=== PATIENT | male | born 1960 | race Caucasian/White ===

== ENCOUNTER 2017-06-09 12:34 | Emergency (ER) | payer OTHER ==
[~2017-06-09] VITALS: Ht 167.6 cm; Wt 68.0 kg
[2017-06-09 12:53] VITALS: BP 128/67; PULSE 84; RESP 16; TEMP 98.1; O2SAT 96
[2017-06-09 14:09] LABS: AUTOMATED NEUTROPHIL # 4.6 TH/MM3 (1.8-7.7); BASOPHIL # 0.1 TH/MM3 (0-0.2); BASOPHIL % 0.8 % (0.0-2.0); EOSINOPHIL # 0.1 TH/MM3 (0-0.4); EOSINOPHIL % 1.8 % (0.0-4.0); HEMATOCRIT 40.9 % (39.0-51.0); HEMO FLAGS DIFF FINAL; LYMPH % 26.9 % (9.0-44.0); MEAN CELL VOLUME 94.5 FL (80.0-100.0); MEAN CORPUSCULAR HGB CONC 33.9 % (32.0-36.0); NEUT % 61.5 % (16.0-70.0); PLATELET COUNT 253 TH/MM3 (150-450); RED BLOOD COUNT 4.33 MIL/MM3 (4.50-5.90); RED CELL DISTRIBUTION WIDTH 13.1 % (11.6-17.2); WHITE BLOOD COUNT 7.5 TH/MM3 (4.0-11.0)
[2017-06-09 14:28] LABS: ANION GAP 7 MEQ/L (5-15); AST (GOT) 18 U/L (15-37); BICARBONATE 25.5 MEQ/L (21.0-32.0); BLOOD UREA NITROGEN 17 MG/DL (7-18); CHLORIDE 106 MEQ/L (98-107); GLOMERULAR FILTRATION RATE 80 ML/MIN (>89); POTASSIUM 4.2 MEQ/L (3.5-5.1); SODIUM (NA) 138 MEQ/L (136-145)
[2017-06-09 14:29] LABS: ALT (GPT) 20 U/L (12-78)
[2017-06-09 14:31] LABS: ALKALINE PHOSPHATASE 73 U/L (45-117); TOTAL BILIRUBIN ADULT 0.7 MG/DL (0.2-1.0)
--- NOTE | 2017-06-09 15:15 | PD ---
HPI Chief Complaint: Psychiatric Symptoms Time Seen by Provider: 14:46 Travel History International Travel<30 days: No Contact w/Intl Traveler<30days: No Traveled to known affect area: No History of Present Illness HPI Patient comes under Frias act by police reportedly hallucinating per Frias act. Frias act states that patient then pointed a gun at the hallucinations that were not there. Patient reports that he found to young people trying to break into his house when he called police, who did not believe him telling him he was hallucinating and brought him to the emergency department. Patient denies any medical complaints at this time. Denies any chest pain, shortness of breath , nausea, vomiting, abdominal pain, headaches, change in vision, numbness tingling anywhere, or suicidal or homicidal ideations. Patient does admit to using marijuana from time to time. Denies any other drug use. PFSH Past Medical History Cardiac Catheterization: Yes Headaches: Yes Herniated Disk: Yes (L4, S1, S2) Hypertension: Yes Past Surgical History Oral Surgery: Yes (MANY TEETH REMOVED) Social History Alcohol Use: No Tobacco Use: Yes (PPD) Substance Use: Yes (marijuana) Allergies-Medications (Allergen,Severity, Reaction): Coded Allergies: No Known Allergies (Unverified , 06/09/17) Reported Meds & Prescriptions Reported Meds & Active Scripts Active No Active Prescriptions or Reported Medications Review of Systems Except as stated in HPI: all other systems reviewed are Neg Physical Exam Narrative GENERAL: Well-developed, well nourished, in no acute distress, and non-ill appearing. SKIN: Focused skin assessment warm and dry. HEAD: Atraumatic. Normocephalic. EYES: Pupils equal and round. EOMI. No scleral icterus. No injection or drainage. ENT: No nasal bleeding or discharge. Mucous membranes pink and moist. NECK: Trachea midline. No JVD. Supple. No nuclear rigidity. CARDIOVASCULAR: Regular rate and rhythm. No murmur appreciated. RESPIRATORY: No accessory muscle use. No respiratory distress. Clear to auscultation. Breath sounds equal bilaterally. MUSCULOSKELETAL: No obvious deformities. No clubbing. No cyanosis. No edema. Full range of motion. NEUROLOGICAL: Awake and alert. No obvious cranial nerve deficits. Motor grossly within normal limits. Normal speech. PSYCHIATRIC: Appropriate mood and affect; insight and judgment normal. Data Data Last Documented VS Vital Signs Date Time Temp Pulse Resp B/P (MAP) Pulse Ox O2 Delivery O2 Flow Rate FiO2 06/09/17 12:53 98.1 84 16 128/67 (87) 96 Orders Orders Complete Blood Count With Diff (06/09/17 12:58) Comprehensive Metabolic Panel (06/09/17 12:58) Psych Screen (06/09/17 12:58) Drug Screen, Random Urine (06/09/17 12:58) Alcohol (Ethanol) (06/09/17 14:46) Labs Laboratory Tests Test 06/09/17 13:00 06/09/17 13:04 Urine Opiates Screen NEG Urine Barbiturates Screen NEG Urine Amphetamines Screen NEG Urine Benzodiazepines Screen NEG Urine Cocaine Screen POS Urine Cannabinoids Screen POS White Blood Count 7.5 TH/MM3 Red Blood Count 4.33 MIL/MM3 Hemoglobin 13.9 GM/DL Hematocrit 40.9 % Mean Corpuscular Volume 94.5 FL Mean Corpuscular Hemoglobin 32.0 PG Mean Corpuscular Hemoglobin Concent 33.9 % Red Cell Distribution Width 13.1 % Platelet Count 253 TH/MM3 Mean Platelet Volume 7.2 FL Neutrophils (%) (Auto) 61.5 % Lymphocytes (%) (Auto) 26.9 % Monocytes (%) (Auto) 9.0 % Eosinophils (%) (Auto) 1.8 % Basophils (%) (Auto) 0.8 % Neutrophils # (Auto) 4.6 TH/MM3 Lymphocytes # (Auto) 2.0 TH/MM3 Monocytes # (Auto) 0.7 TH/MM3 Eosinophils # (Auto) 0.1 TH/MM3 Basophils # (Auto) 0.1 TH/MM3 CBC Comment DIFF FINAL Differential Comment Blood Urea Nitrogen 17 MG/DL Creatinine 0.97 MG/DL Random Glucose 97 MG/DL Total Protein 7.5 GM/DL Albumin 4.3 GM/DL Calcium Level 9.5 MG/DL Alkaline Phosphatase 73 U/L Aspartate Amino Transf (AST/SGOT) 18 U/L Alanine Aminotransferase (ALT/SGPT) 20 U/L Total Bilirubin 0.7 MG/DL Sodium Level 138 MEQ/L Potassium Level 4.2 MEQ/L Chloride Level 106 MEQ/L Carbon Dioxide Level 25.5 MEQ/L Anion Gap 7 MEQ/L Estimat Glomerular Filtration Rate 80 ML/MIN MDM Medical Decision Making Medical Screen Exam Complete: Yes Emergency Medical Condition: Yes Differential Diagnosis Auditory, visual hallucinations, suicidal, homicidal, electrolyte abnormality, psychosis, substance abuse, alcohol intoxication, other Narrative Course Patient was seen and examined. Labs were obtained and reviewed with the exception of blood alcohol level that is currently pending. Patient medically cleared for further treatment and evaluation by psych. Final disposition per psych. Diagnosis Primary Impression: Substance abuse Additional Impression: Medical clearance for psychiatric admission Scripts No Active Prescriptions or Reported Meds Condition: Stable Yuri Solorio Jun 09, 2017 15:15
[2017-06-09 17:29] VITALS: BP 128/72; PULSE 71; RESP 12; O2SAT 97
[2017-06-09 22:00] VITALS: BP 106/68; PULSE 60; RESP 15; O2SAT 94
[2017-06-10 02:13] VITALS: BP 117/59; PULSE 75; RESP 17; O2SAT 98
[2017-06-10 06:00] VITALS: BP 105/64; PULSE 67; RESP 17; O2SAT 99
--- NOTE | 2017-06-10 13:21 | PD ---
Physical Exam Time Seen by Provider: 13:18 TYREE Sanchez, has evaluated the patient, lifted the Frias act and cleared the patient for discharge. Data Data Last Documented VS Vital Signs Date Time Temp Pulse Resp B/P (MAP) Pulse Ox O2 Delivery O2 Flow Rate FiO2 06/10/17 06:00 67 17 105/64 (78) 99 Room Air 06/09/17 12:53 98.1 Orders Orders Complete Blood Count With Diff (06/09/17 12:58) Comprehensive Metabolic Panel (06/09/17 12:58) Psych Screen (06/09/17 12:58) Drug Screen, Random Urine (06/09/17 12:58) Alcohol (Ethanol) (06/09/17 14:46) Diet Regular Basic (06/09/17 Dinner) Diet Regular Basic (06/10/17 Breakfast) Diet Regular Basic (06/10/17 Lunch) Ed Discharge Order (06/10/17 13:18) Labs Laboratory Tests Test 06/09/17 13:00 06/09/17 13:04 Urine Opiates Screen NEG Urine Barbiturates Screen NEG Urine Amphetamines Screen NEG Urine Benzodiazepines Screen NEG Urine Cocaine Screen POS Urine Cannabinoids Screen POS White Blood Count 7.5 TH/MM3 Red Blood Count 4.33 MIL/MM3 Hemoglobin 13.9 GM/DL Hematocrit 40.9 % Mean Corpuscular Volume 94.5 FL Mean Corpuscular Hemoglobin 32.0 PG Mean Corpuscular Hemoglobin Concent 33.9 % Red Cell Distribution Width 13.1 % Platelet Count 253 TH/MM3 Mean Platelet Volume 7.2 FL Neutrophils (%) (Auto) 61.5 % Lymphocytes (%) (Auto) 26.9 % Monocytes (%) (Auto) 9.0 % Eosinophils (%) (Auto) 1.8 % Basophils (%) (Auto) 0.8 % Neutrophils # (Auto) 4.6 TH/MM3 Lymphocytes # (Auto) 2.0 TH/MM3 Monocytes # (Auto) 0.7 TH/MM3 Eosinophils # (Auto) 0.1 TH/MM3 Basophils # (Auto) 0.1 TH/MM3 CBC Comment DIFF FINAL Differential Comment Blood Urea Nitrogen 17 MG/DL Creatinine 0.97 MG/DL Random Glucose 97 MG/DL Total Protein 7.5 GM/DL Albumin 4.3 GM/DL Calcium Level 9.5 MG/DL Alkaline Phosphatase 73 U/L Aspartate Amino Transf (AST/SGOT) 18 U/L Alanine Aminotransferase (ALT/SGPT) 20 U/L Total Bilirubin 0.7 MG/DL Sodium Level 138 MEQ/L Potassium Level 4.2 MEQ/L Chloride Level 106 MEQ/L Carbon Dioxide Level 25.5 MEQ/L Anion Gap 7 MEQ/L Estimat Glomerular Filtration Rate 80 ML/MIN Ethyl Alcohol Level LESS THAN 3 MG/DL MDM Supervised Visit with [facility]: No Narrative Course TYREE Miller, has evaluated the patient, lifted the Frias act and cleared the patient for discharge. Patient contracts safety. Denies suicidal or homicidal ideations. Patient will be provided community resource packet to KEV[facility] for follow-up. Has friends and family for support. Patient is medically cleared for discharge. Diagnosis Primary Impression: Substance abuse Additional Impression: Medical clearance for psychiatric admission Referrals: [facility] (Out patient) [facility] Primary Care Physician Psychiatrist [facility] Patient Instructions: General Instructions, Polysubstance Abuse (ED) Additional Instruction: Contract safety to your self and others Stop using drugs Follow-up with psychiatry Follow-up with primary care provider Follow-up with Denzel Zamorano Return to the emergency department immediately with worsening of symptoms Med/Other Pt SpecificInfo: No Change to Meds, No Meds Exist/No RX given Scripts No Active Prescriptions or Reported Meds Disposition: 01 DISCHARGE HOME Condition: Stable Seble Olguin Jun 10, 2017 13:21
--- NOTE | 2017-06-10 13:23 | PD ---
History of Present Illness Chief Complaint: Psychiatric Symptoms Time Seen by Provider: 12:45 Travel History International Travel<30 Days: No Contact w/Intl Traveler<30days: No Known affected area: No Legal Status Legal Status: Frias Act Frias Act Signed By: Jh Narvaez Frias Act Comment: BA SIGNED BY JOSUE VILLATORO ON 06/09/17 @ 11:18 CASE # [id number] History of Present Illness: History of Present Illness HPI Patient is a 57 year old male with reported history of PTSD and depression, currently not in tx, history of substance use disorder who comes under Frias act by police.The frias act states that the patient called 911 to report that there were 2 people breaking into his home. The police did not find anyone there and determined that this was a hallucination. Patient later admitted that it was a hallucination according to the police affidavit. EMR is reviewed. No prior contact with [facility] psychiatry. Current toxicology is positive for cannabinoids as well as cocaine. he has been monitored here in [facility] over extended period of time and he has not presented any behavioral dysregulation and has not reported any further hallucinations. He is alert, oriented, cooperative and calm. he denies any further hallucinations, no delusions, no paranoia. No objective clinical signs of depression or anxiety. Patient admits to use of cocaine on occasions. This may have contributed to this incident leading to Frias act. PFSH Past Medical History Cardiac Catheterization: Yes Headaches: Yes Herniated Disk: Yes (L4, S1, S2) Hypertension: Yes Past Surgical History Oral Surgery: Yes (MANY TEETH REMOVED) Psychiatric History Psychiatric History Hx Psychiatric Treatment: Dx w PTSD and depression . Took medication for 2 - 3 years. No meds x 9 years. History of Inpatient Treatment: No Guns or firearms in home: Yes Social History x 18 years. retired police cadet. Lives with his and her mother. Hx Alcohol Use: No Hx Tobacco Use: Yes (PPD) Hx Substance Use: Yes (ALCOHOLIC SOBER SINCE 03/2006, OCCASIONAL THC EDIBLES AND RECENT COCAINE USE) Substance Use Type: Alcohol, Marijuana, Cocaine Hx of Substance Use Treatment: Yes Family Psychiatric History Father with schizophrenia Allergies-Medications (Allergen,Severity, Reaction): Coded Allergies: No Known Allergies (Unverified , 06/09/17) Reported Meds & Prescriptions Reported Meds & Active Scripts Active No Active Prescriptions or Reported Medications Review of Systems Except as stated in HPI: all other systems reviewed are Neg Mental Status Examination Appearance: Appropriate Consciousness: Alert Orientation: x4 Motor Activity: Normal gait Speech: Unremarkable Language: Adequate Fund of Knowledge: Adequate Attention and Concentration: Adequate Memory: Unremarkable Mood: Appropriate Affect: Appropriate Thought Process & Associations: Intact, Logical, Goal directed Thought Content: Appropriate Hallucination Type: None Delusion Type: None Suicidal Ideation: No Suicidal Plan: No Suicidal Intention: No Homicidal Ideation: No Homicidal Plan: No Homicidal Intention: No Insight: Adequate Judgment: Adequate MDM Medical Decision Making Medical Record Reviewed: Yes Assessment/Plan Patient is a 57 year old male with reported history of PTSD and depression, currently not in tx, history of substance use disorder who comes under Frias act by police.The frias act states that the patient called 911 to report that there were 2 people breaking into his home. The police did not find anyone there and determined that this was a hallucination. Patient later admitted that it was a hallucination according to the police affidavit. EMR is reviewed. No prior contact with [facility] psychiatry. Current toxicology is positive for cannabinoids as well as cocaine. He has been monitored here in [facility] over extended period of time and he has not presented any behavioral dysregulation and has not reported any further hallucinations. I have counseled regarding continued use of substances. 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
[2017-06-10 13:37] VITALS: BP 105/64; TEMP 98
== END 2017-06-10 13:45 | disposition home or self-care (01) ==
LOC: NEPJ 12:34
DX: R44.3 Hallucinations, unspecified (principal); I10 Essential (primary) hypertension; F17.200 Nicotine dependence, unspecified, uncomplicated
CPT/HCPCS: 80053; 80307; 85025; 99284